=== PATIENT | female | born 1950 | race Caucasian/White ===

== ENCOUNTER → 2017-02-25 | Outpatient (CLI) | payer BC ==
[~2017-02-25] MED LIST: AMLODIPINE BESYL5 MG PO; B-100 COMPLEX1 EAC1 PO; BACTRIM DS TAB1 EACH PO; CIPROFLOXACIN500 M1 PO; FLAGYL500 MG PO; HYDROCHLOROTHIA25 M1 PO; IBUPROFEN 200200 M1 PO; KEFLEX500 MG; KLOR-CON 1010 MEQ PO; LECITHIN PO; LORTAB 7.5/5001 TA3 PO; MAGNESIUM OXID400 MG PO; OMEGA-31000 MG PO; OMEPRAZOLE40 MG PO; OYSTER SHELL C1 EA12 PO; PERCOCET 5-3251 EACH PO; SIMVASTATIN40 MG PO; TRANDOLAPRIL4 MG PO; VALIUM5 MG PO; VITAMIN D400 UNI1 PO; VITAMIN E400 UNIT PO; VITAMINC500 PO
== END ==
LOC: RAD 01:33
DX: Z12.31 Encounter for screening mammogram for malignant neoplasm of breast (principal)

== ENCOUNTER → 2018-02-26 | Outpatient (CLI) | payer BC | LOC: RAD 01:57 | DX: Z12.31 Encounter for screening mammogram for malignant neoplasm of breast (principal) ==

== ENCOUNTER 2018-05-24 05:35 | Inpatient (IN) | payer BC, OTHER ==
[2018-04-26 08:52] LABS: HEMOGLOBIN 13.8 gm/dL (12.0-15.0); MCH 28.5 pg (26.0-34.0); MCHC 33.7 g/dL (28.0-37.0); MCV 84.7 fL (80.0-100.0); RBC 4.85 mil/uL (4.20-5.00); WBC 4.7 thou/uL (4.0-11.0)
[2018-04-26 08:58] LABS: URINE BILIRUBIN NEGATIVE (Negative); URINE BLOOD TRACE (Negative); URINE CLARITY CLEAR; URINE COLOR YELLOW; URINE GLUCOSE-RANDOM* NEGATIVE (Negative); URINE KETONES NEGATIVE (Negative); URINE LEUKOCYTES-REFLEX TRACE (Negative); URINE NITRITE-REFLEX NEGATIVE (Negative); URINE PROTEIN (DIPSTICK) NEGATIVE (Negative); URINE UROBILINOGEN 0.2 E.U./dl (0.2-1.0)
[2018-04-26 09:02] LABS: PROTIME 10.3 Seconds (9.3-11.4)
[2018-04-26 09:08] LABS: CREATININE 0.8 mg/dL (0.6-1.0); POTASSIUM 3.8 mmol/L (3.5-5.1)
--- NOTE | 2018-04-26 09:45 | EKG ---
[address] [address] ELECTROCARDIOGRAM REPORT Name: FARHAN TIM Room #: [facility]#: [id number] ������������������ Admission: ������������������ Attend Phys: Virgilio Villanueva MD Discharge: ������������������ Date of : 50 Report #: [id number] ����������������������������������������������������������������� [id number] THIS REPORT FOR: //name// [facility] Test Date: 2018-04-26 Test Time: 08:46:56 Pat Name: FARHAN TIM Department: Room: Gender: F Speeder Hand: THANH RIVERA : 1950 Requested By: Virgilio Villanueva Order Number: [id number] MD: Jose Gandara Measurements Intervals [place] Rate: 61 P: 22 FL: 185 QRS: 10 QRSD: 106 T: 24 QT: 443 QTc: 447 Interpretive Statements Sinus rhythm Atrial premature complex Baseline wander Nonspecific ST-T wave changes Compared to ECG 01/12/2013 06:52:25 no significant changes noted Electronically Signed On 04-26-2018 9:45:52 EROSION CONTROL COORDINATOR by Jose Gandara [email or web address] ��������������������������������������������� <ELECTRONICALLY SIGNED> ���������������������������������������� By: Jose Gandara MD ��������������������������������������������� 04/26/18 0945 5 5 Jose Gandara MD /EPI
[~2018-05-24] VITALS: Ht 167.6 cm; Wt 104.3 kg
[~2018-05-24 05:35] MED LIST changes: +ASPIR 8181 MG PO; +GARLIC100 MG PO
[2018-05-24 14:02] VITALS: BP 133/80
[2018-05-24 20:37] VITALS: BP 116/50
[2018-05-25 03:57] VITALS: BP 117/45
--- NOTE | 2018-05-25 04:56 | NUR ---
Pt came to unit approx 1900. Pt alert and oriented x4. Post-op bilateral total knee. Pain controlled with prn pain meds. Picco dressings clean and intact. Able to void well. IVF and antibiotics administered. Call light within reach. Will continue to monitor and assist with needs.
[2018-05-25 05:23] LABS: HEMATOCRIT 27.6 % (37.0-47.0); HEMOGLOBIN 8.7 gm/dL (12.0-15.0); MCH 28.1 pg (26.0-34.0); MCHC 31.4 g/dL (28.0-37.0); MCV 89.5 fL (80.0-100.0); RBC 3.09 mil/uL (4.20-5.00); RDW 13.2 % (10.5-14.5); WBC 11.2 thou/uL (4.0-11.0)
[2018-05-25 07:52] VITALS: BP 116/65
--- NOTE | 2018-05-25 08:00 | NUR ---
PT ASSESSED THIS AM. UP W/THERAPY TWICE AND WALKED. SOME FLEXION DONE AND PROGRESSING WELL. PAIN MANAGABLE W/ MEDS. EATING AND DRINKING WELL.
--- NOTE | 2018-05-25 13:11 | NUR ---
ASSESSMENT-PT LIVES AT HOME WITH HER KEYUR. THEY HAVE A STAIRGLIDE DOWN TO THEIR BEDROOM AND A RAMP TO ENTER THE HOME. PT HAS A 4WW AND A 2 WHEELED WALKER, WC, GRAB BARS AND A SHOWER CHAIR SHE USES AT HOME. PT HAS NOT HAD ANY HH SERVICES IN THE PAST. PT DOES NOT ANTICIPATE ANY DC NEEDS AT THIS TIME. FOLLOWING TO ASSIST WITH DC PLANNING. ABLE TO ASSIST PT AT HOME.
[2018-05-25 14:38] VITALS: BP 94/43
--- NOTE | 2018-05-25 14:45 | NUR ---
PATIENT HAVING NO PAIN THIS MORNING. GOAL WAS TO GET OUT OF BED AND WALK. PAIN INCREASED MID MORNING. PATIENT WAS ABLE TO WALK FIVE FEET WITH PHYSICAL THERAPY. PATIENT MOVED TO CHAIR AND STAYED THERE THROUGH LUNCH. PATIENT ATTEMPTED TO USE BEDSIDE COMMODE BUT WAS IN TOO MUCH PAIN AND FELT FAINT. PATIENT WORKED WITH PHYSICAL THERAPY AGAIN AND EXCELLED AT THE EXERCISES. SHE WALKED FROM THE CHAIR TO THE DOOR AND BACK TO BED. PATIENT STATED SHE FELT SHE DID NOT DO WELL WITH THE EXERCISES.
--- NOTE | 2018-05-25 14:49 | NUR ---
I have reviewed and concur with student documentation.
[2018-05-25 16:20] VITALS: BP 105/39
[2018-05-25 19:19] VITALS: BP 116/45
--- NOTE | 2018-05-26 03:42 | NUR ---
Assumed care of pt at 1900. Pt alert and oriented x4. Dressings on bilateral knees clean and intact. MARIANGEL hose and SCDs in place bilaterally. PRN pain meds administered. Call light within reach. Will continue to monitor and assist with needs.
[2018-05-26 03:55] VITALS: BP 113/54
[2018-05-26 05:59] LABS: HEMATOCRIT 27.7 % (37.0-47.0); HEMOGLOBIN 9.5 gm/dL (12.0-15.0); MCH 28.7 pg (26.0-34.0); MCHC 34.2 g/dL (28.0-37.0); RBC 3.31 mil/uL (4.20-5.00); RDW 12.9 % (10.5-14.5); WBC 6.4 thou/uL (4.0-11.0)
[2018-05-26 06:05] LABS: MCV 83.8 fL (80.0-100.0)
[2018-05-26 07:25] VITALS: BP 120/57
--- NOTE | 2018-05-26 09:05 | NUR ---
ASSESMENT COMPLETED. VSS. A/O. PAIN MANAGED BY MEDS ORDERED. NO NOTED SOA. NO NV. MAIRA DRESSING INTACT. SCDS. PT RESTING IN BED AT THIS TIME. APPEARS COMFORTABLE. WILL CONT. TO MONITOR.
--- NOTE | 2018-05-26 16:01 | O ---
[facility] [place] [address] OPERATIVE REPORT Name: FARHAN TIM Room #: 419-P [facility] IN M.R.#: [id number] Admission: 05/24/18 ������������������ Attend Phys: Virgilio Villanueva MD Discharge: ������������������ Date of : 50 Report #: [id number] THIS REPORT FOR: //name// CC: Tee Villanueva DATE OF SERVICE: 05/24/2018 PREOPERATIVE DIAGNOSIS: Bilateral knee osteoarthritis. POSTOPERATIVE DIAGNOSIS: Bilateral knee osteoarthritis. PROCEDURE: Bilateral total knee arthroplasty using NAVIO robotic housekeeper and laundry assistant. SURGEON: Virgilio Villanueva MD. JANITOR AND CLEANER: Beulah Evans PA-C INDICATION FOR JANITOR AND CLEANER: Throughout the case, extensive retraction and manipulation of the knees was required. This was afforded to me by my housekeeper and laundry assistant. ANESTHESIA: LMA with an adductor canal block. IMPLANTS: For the right knee was a Stallworth and Nephew size 6 Legion cobalt chrome posterior stabilized femur, a size 4 tibia, size 35 patella and a size 11 polyethylene. Implants for the left knee was a Stallworth and Nephew size 6 Legion cobalt chrome posterior stabilized femur, size 5 tibia, size 35 patella and a size 10 polyethylene. TOURNIQUET TIME: For the right knee was 69 minutes, for the left knee was 67 minutes. ESTIMATED BLOOD LOSS: 50 mL. COMPLICATIONS: None. SPECIMENS: None. CONDITION UPON LEAVING THE OPERATING ROOM: Stable. INDICATIONS FOR PROCEDURE: The patient is a 68-year-old female with severe bilateral knee osteoarthritis. She has failed conservative measures for this and after discussion with her she elected for bilateral total knee arthroplasty. [facility] [address] [place] [address] OPERATIVE REPORT Name: FARHAN TIM Room #: 419-P [facility] IN M.R.#: [id number] Admission: 05/24/18 ������������������ Attend Phys: Virgilio Villanueva MD Discharge: ������������������ Date of : 50 Report #: [id number] DESCRIPTION OF PROCEDURE: Risks, benefits, alternatives, complications were discussed in detail with the patient including but not limited to risk of anesthesia, risk of damage to nerves, arteries, blood vessels; risk for infection, bleeding, risk for continued knee pain and need for reoperation. Informed consent was obtained from the patient. Bilateral knees were marked in the preoperative holding area. Adductor canal blocks were placed by Anesthesia. She was brought to the operating room and placed in the supine position on the operating room table. LMA anesthesia was induced without complication. Tourniquet was placed on bilateral thighs. Bilateral legs were prepped and draped in normal sterile fashion. Timeout was performed properly identifying the patient and procedure as well as the instrumentation and implants. All in the operating room were in agreement. Following dictation applies to bilateral knees. The extremity was exsanguinated, tourniquet inflated. A standard midline incision was made with 10 blade through the skin and dissection was taken down to the fascia, deep flaps were developed medially and laterally. A medial parapatellar arthrotomy was performed and the knee was inspected. There was severe tricompartmental osteoarthritis. ACL and PCL were removed sharply and reference pins were placed in the tibia and the femur for the NAVIO system. The knee was initially mapped using the NAVDiplopia robotic system and was sized to a size #6 for the femur, a size 5 for the left tibia and a 4 for the right tibia. After acceptance of the intraoperative plan, the distal femoral cut was made with a NAVIO bur. The 4-in-1 cutting block was then pinned in place and the anterior, posterior and chamfer cuts were made. Attention was then turned to the tibia. The remainder of the menisci removed with Bovie cautery and the tibial resection was then made using the NAVIO system to place the tibial resection guide. Flexion and extension gaps were checked and found to have good balance in flexion and extension. Tibial trials were pinned and punched. Femoral trials were placed and the box cut was made. This was then trialed with a size 10 for the left and a size 11 polyethylene for the right and had good balance in flexion and extension throughout range of motion both digitally as well as manually. A 9 mm was taken off the posterior surface of the patella and a size 35 patellar trial button was placed. The knee was taken through range of motion, found to be stable, found to have good patellar tracking. Trial components were removed. Bony ends were thoroughly irrigated with normal saline. Final tibial implants were cemented in place as well as the femoral and patellar components. While the cement cured, a periarticular injection was injected around the knee joint capsule consisting of morphine, ropivacaine, epinephrine and Toradol. After the cement cured, the tourniquet was deflated. Hemostasis was obtained with Bovie cautery. A final size 10 polyethylene was placed on the left, a size 11 on the right. A gram of vancomycin was placed deep in the joint. Fascia was closed with 0 Vicryl, skin was closed with 2-0 Vicryl, 3-0 Monocryl. Dermabond and a MAIRA dressing were applied. The patient [address] [address] OPERATIVE REPORT Name: FARHAN TIM Room #: 419-P [facility] IN M.R.#: [id number] Admission: 05/24/18 ������������������ Attend Phys: Virgilio Villanueva MD Discharge: ������������������ Date of : 50 Report #: [id number] tolerated this procedure well and went to recovery room under care of Anesthesia postoperatively. ��������������������������������������������� <ELECTRONICALLY SIGNED> ���������������������������������������� By: Virgilio Villanueva MD ��������������������������������������������� 05/26/18 1601 1757 1910 Virgilio Villanueva MD /nt
[2018-05-26 16:53] VITALS: BP 120/49
[2018-05-26 20:39] VITALS: BP 141/59
--- NOTE | 2018-05-27 04:08 | NUR ---
ASSUMED PT CARE 190. PT ALERT AND ORIENTED. VSS. REASSESSMENT COMPLETE. PT DENIES N/V, REPORTS MODERATE PAIN, SEE EMAR. PT WANTED TO ATTEMPT TO GET UP TO BSC, WAS UNABLE TO DUE TO PAIN, CONTINUING TO USE BEDPAN. IV DRESSING C/D/I, NO SIGNS OF INFILTRATION. MAIRA DRESSING BILAT KNEES C/D/I. WILL CONTINUE POC UNTIL EOS.
[2018-05-27 04:54] LABS: HEMATOCRIT 28.8 % (37.0-47.0); HEMOGLOBIN 9.9 gm/dL (12.0-15.0); MCH 29.1 pg (26.0-34.0); MCHC 34.4 g/dL (28.0-37.0); MCV 84.4 fL (80.0-100.0); RBC 3.41 mil/uL (4.20-5.00); RDW 13.1 % (10.5-14.5); WBC 5.7 thou/uL (4.0-11.0)
[2018-05-27 05:09] VITALS: BP 112/64
[2018-05-27 08:32] VITALS: BP 104/55
--- NOTE | 2018-05-27 11:27 | NUR ---
dp sent initial referral to [facility], will call to make certain they received.
[2018-05-27] MEDS ORDERED: MS CONTIN15 MG PO (13:13)
[2018-05-27] MEDS ORDERED: PERCOCET PO (13:14)
[2018-05-27] MEDS ORDERED: NEURONTIN 300300 M1 PO (13:15)
[2018-05-27] MEDS ORDERED: TRI-BUFFERED A325 M1 PO (13:15)
[2018-05-27 16:27] VITALS: BP 96/58
--- NOTE | 2018-05-27 17:24 | NUR ---
H&P FAXED TO [facility] REQUESTED FOR THEIR REVIEW.
[2018-05-27 19:19] VITALS: BP 146/54
--- NOTE | 2018-05-27 20:08 | NUR ---
ASSUMED CARE OF PT AT 0700. ASSESSMENT COMPLETED. PT REPORTS GOAL TO HAVE BM AND AMBULATE IN HALLWAY. ONE SMALL BM NOTED THIS SHIFT. PT WORKED WITH P.T. WALKED IN HALLWAY AND UP TO CHAIR, USING BEDSIDE COMMODE. S/P BILATERAL TOTAL KNEE REPLACEMENT, MAIRA DRESSING IN PLACE BILATERALLY, ICE IN PLACE FOR COMFORT. LOW AM BP NOTED, BP MEDS HELD. PT IN STABLE CONDITION. AT BEDSIDE THROUGHOUT THE DAY.
--- NOTE | 2018-05-28 03:16 | NUR ---
ASSUMED CARE AT 1900, ASSESSMENT COMPLETED. ASSISTED PT FROM CHAIR TO BSC THEN INTO BED, CALLS APPROPRIATELY FOR ASSISTANCE; SLOW WITH TRANSFERS, TAKES SOME TIME TO GET UP ONTO FEET FROM SITTING POSITION, POOR LEG STRENGTH IN BED WHEN ASKED TO RAISE LEGS UP. DENIES SOB OR NAUSEA. REPORTS PAIN 4/10 IN BILAT KNEES. MARIANGEL HOSE ON, SCD'S PLACED ON ONCE IN BED. MINIMAL EDEMA IN ANKLES OR FEET, 2+ EDEMA ABOVE MARIANGEL HOSE AND IN KNEES. MAIRA DRESSINGS INTACT, DRIED SPOTS ON THE LEFT DRESSING. EXPECT D/C TO [facility] TOMORROW. NO OTHER CONCERNS, WILL CONTINUE TO MONITOR.
[2018-05-28 04:26] VITALS: BP 118/57
[2018-05-28 07:35] VITALS: BP 103/63
[2018-05-28 08:12] VITALS: BP 103/63
--- NOTE | 2018-05-28 09:58 | NUR ---
ASSUMED CARE OF PT AT 0700. ASSESSMENT COMPLETED. A&O,X4. C/O 06/16 BILATERAL KNEE PAIN S/P BILATERAL TKA, MAIRA DRESSINGS IN PLACE, MARIANGEL BARKER, SCD'S WHILE IN BED. EDEMA BILATERAL LEGS. PAIN MEDS GIVEN ORDERED. DENIES N/V/D. BM YESTERDAY. ROOM AIR, NO SOA. HX HTN, LOW BP NOTED, AM BP MEDS HELD. PLAN TO GO TO [facility] TODAY. WILL CONTINUE TO MONITOR.
--- NOTE | 2018-05-28 14:58 | NUR ---
PT. DISCHARGING TODAY TO [facility] FAXED DC ORDERS/SUMMARY TO FACILITY AND SPOKE WITH [facility]ETH IN ADM. SHE RECEIVED DC ORDERS AND SET UP TRANSPORTATION VIA [facility] FOR 1630. LEFT MSG WITH (KEYUR) OF DISCHARGE AND TIME OF TRANSPORT. UNIT NOTIFIED AND CHART COPY PER US. RN TO CALL REPORT TO [phone].
--- NOTE | 2018-05-28 16:45 | NUR ---
DISCHARGE ORDERS. [employer] APPROVED [facility]. REPORT CALLED. IV REMOVED, NO BLEEDING. PT DRESSED IN PERSONAL CLOTHES. DAUGHTER AND AT BEDSIDE. PT LEFT VIA MEDICAL TRANSPORT IN A WHEELCHAIR AT 16:45 IN STABLE CONDITION. BELONGINGS GIVEN TO FAMILY. PT STATES NO QUESTIONS OR CONCERNS.
== END 2018-05-28 16:54 | DRG 462 ==
LOC: 4E 05:35 → TBA 05:35 → PRE 06:05 → 4E 19:10
PROVIDERS: ADMIT Orthopaedic Surgery
PROC: 0SRC0J9 Replacement of Right Knee Joint with Synthetic Substitute, Cemented, Open Approach (ICD-10-PCS; principal; 2018-05-24)
PROC: 0SRD0J9 Replacement of Left Knee Joint with Synthetic Substitute, Cemented, Open Approach (ICD-10-PCS; principal; 2018-05-24)
PROC: 8E0Y0CZ Robotic Assisted Procedure of Lower Extremity, Open Approach (ICD-10-PCS; principal; 2018-05-24)
DX: M17.0 Bilateral primary osteoarthritis of knee (principal); Z79.82 Long term (current) use of aspirin; Z79.899 Other long term (current) drug therapy; Z88.6 Allergy status to analgesic agent; Z28.21 Immunization not carried out because of patient refusal
CPT/HCPCS: 10783; 50010; 50101; 50415; 50915; 50954; 51130; 51225; 53000; 53078; 53364; 54118; 56527; 56528; 57095; 57103; 57109; 57110; 57113; 57127; 62110; 62900; 70005

== ENCOUNTER → 2019-04-12 | Outpatient (CLI) | payer BC, OTHER ==
[~2019-04-12] MED LIST changes: +MS CONTIN15 MG PO; +NEURONTIN 300300 M1 PO; +PERCOCET PO; +TRI-BUFFERED A325 M1 PO
== END ==
LOC: RAD 07:37
DX: Z12.31 Encounter for screening mammogram for malignant neoplasm of breast (principal)

== ENCOUNTER → 2020-04-16 | Outpatient (CLI) | payer BC, OTHER | LOC: BC 08:41 | PROVIDERS: ATTEND Family Medicine | DX: Z12.31 Encounter for screening mammogram for malignant neoplasm of breast (principal) ==

== ENCOUNTER → 2021-04-16 | Outpatient (CLI) | payer BC | LOC: BC 11:49 | PROVIDERS: ATTEND Family Medicine | DX: Z12.31 Encounter for screening mammogram for malignant neoplasm of breast (principal); N63.10 Unspecified lump in the right breast, unspecified quadrant; Z90.12 Acquired absence of left breast and nipple ==